=== PATIENT | female | born 1980 | race Caucasian/White ===

== ENCOUNTER 2022-03-19 15:54 | Outpatient (CLI) | payer OTHER, SELFPAY ==
--- NOTE | 2022-03-19 16:00 | CRLHL7_ITS ---
For Patients: As a result of the Century Cures Act, medical imaging exams and procedure reports are released immediately into your electronic medical record. You may view this report before your referring provider. If you have questions, please contact your health care provider. INDICATION: Uterine fibroids. Abnormal menstrual bleeding. TECHNIQUE: Transabdominal and transvaginal pelvic ultrasound. COMPARISON: None. FINDINGS: Enlarged uterus measuring 14.2 x 6.5 x 8.4 cm. The endometrial stripe is 11 mm measured transvaginally normal in a premenopausal female. No free pelvic fluid. The uterus is enlarged, heterogeneous in echotexture, and contains at least 3 discrete measurable fibroids. For example: Posterior exophytic mid uterine body fibroid measuring 4.1 x 4.2 x 4.4 cm. Right fundal fibroid largely intramural measuring 2.8 x 2.9 x 2.8 cm. Sub serosal mid lateral left uterine body fibroid measuring 2.8 x 2.4 x 2.3 cm. The left ovary is only visualized transabdominally. The left ovary measures 3.8 x 2.3 x 2.7 cm. The right ovary measures 4.4 x 3.0 x 2.4 cm. Blood flow is documented in the right ovary. IMPRESSION: Enlarged uterus with multiple fibroids. Endometrial stripe of 11 mm. Unremarkable ovaries. Dictated by Jamie Garsia MD @ 03/20/2022 8:47:18 AM (Electronically Signed)
== END 2022-03-19 15:55 | disposition home or self-care (01) ==
LOC: US 15:55
PROVIDERS: Visit Provider Obstetrics & Gynecology
DX: N93.9 Abnormal uterine and vaginal bleeding, unspecified (principal); D25.9 Leiomyoma of uterus, unspecified
CPT/HCPCS: 76830; 76856

== ENCOUNTER 2022-03-27 10:24 | Outpatient (CLI) | payer OTHER, SELFPAY ==
[2022-03-27 12:14] LABS: Cholesterol* 209 mg/dL (90-199); Triglycerides* 156 mg/dL (40-149)
[2022-03-27 12:15] LABS: HDL Cholesterol* 64 mg/dL (>=50); LDL Cholesterol Calculated 114 mg/dL (<100)
[2022-03-27 12:31] LABS: Vitamin D 25 Hydroxy* 32 ng/mL (30-80)
== END 2022-03-27 10:25 | disposition home or self-care (01) ==
LOC: NFLDREF 10:24
PROVIDERS: Visit Provider Obstetrics & Gynecology
DX: N93.9 Abnormal uterine and vaginal bleeding, unspecified (principal); R45.86 Emotional lability; Z13.6 Encounter for screening for cardiovascular disorders
CPT/HCPCS: 80061; 82306; 84443

== ENCOUNTER 2022-04-08 10:55 | Outpatient (CLI) | payer OTHER, SELFPAY ==
[2022-04-09 16:40] LABS: Follicle Stimulating Hormone 47.9 IU/L; Luteinizing Hormone, Serum 20.4 IU/L
[2022-04-09 17:10] LABS: Estradiol Premenol Female 37 pg/mL
[2022-04-16 13:35] LABS: Sex Hormone Binding Globulin 85 nmol/L (25-122); Testosterone Bioavailable 6.1 ng/dL (2.8-16.5); Testosterone, Free LC-MS/MS 2.2 pg/mL (1.1-5.8); Testosterone, LC-MS/MS 25 ng/dL (9-55)
== END 2022-04-08 10:56 | disposition home or self-care (01) ==
LOC: NFLDREF 10:55
PROVIDERS: Visit Provider Obstetrics & Gynecology
DX: Z11.3 Encounter for screening for infections with a predominantly sexual mode of transmission (principal); Z13.9 Encounter for screening, unspecified
CPT/HCPCS: 82670; 83001; 83002; 84270; 84402; 84403

== ENCOUNTER 2024-02-19 18:27 | Outpatient (CLI) | payer OTHER, SELFPAY | END 2024-02-19 18:28 | disposition home or self-care (01) | LOC: NFLDREF 02-22 05:50 | PROVIDERS: PCP Family Medicine; Visit Provider Family Medicine | DX: N39.0 Urinary tract infection, site not specified (principal); K59.01 Slow transit constipation | CPT/HCPCS: 87086 ==